=== PATIENT | female | born 1990 ===

== ENCOUNTER 2020-05-24 23:55 | Emergency (ER) | payer OTHER, BC ==
[2020-05-24] MEDS ORDERED: Acetaminophen/HYDROcodone 325-5 MG Tab PO ONE (23:56)
[2020-05-24] MEDS ORDERED: Amoxicillin/Clavulanate K 500-125 MG Tab PO ONE (23:56)
--- NOTE | 2020-05-25 00:05 | EDM.PDOC ---
ED HPI GENERAL MEDICAL PROBLEM - General Chief Complaint: Bite:Animal, Insect Stated Complaint: CAT BITE Time Seen by Provider: 05/25/20 00:02 Source of Information: Reports: Patient History Limitations: Reports: No Limitations - History of Present Illness INITIAL COMMENTS - FREE TEXT/NARRATIVE: Severe pain left wrist,fore arm. Swelling and some numbness. Cat bite yesterday. Not responding to OTC Motrin. No systemic fever or chills.. left forearm Pain Score (Numeric/FACES): 3 - Related Data Allergies Allergy/AdvReac Type Severity Reaction Status Date / Time seasonal allergies Allergy Hives Uncoded 05/25/20 00:55 Home Meds: Home Meds . [Unable to Verify Home Med List] 05/25/20 [History] ED ROS GENERAL - Review of Systems Review Of Systems: Comprehensive ROS is negative, except as noted in HPI. ED EXAM, ANIMAL BITE - Physical Exam Exam: See Below Text/Narrative:: Left wrist is red,warm,tender. Diminished range of mission.Normal peripheral pulses. Exam Limited By: No Limitations General Appearance: Alert, WD/WN Eye Exam: Bilateral Eye: EOMI, Normal Inspection, PERRL Nose: Normal Inspection Throat/Mouth: Normal Inspection Course - Vital Signs Last Recorded V/S: Last Vital Signs Temp 98.6 F 05/25/20 00:05 Pulse 76 05/25/20 00:05 Resp 17 05/25/20 00:05 BP 108/54 L 05/25/20 00:05 Pulse Ox 98 05/25/20 00:05 - Orders/Labs/Meds Labs: Laboratory Tests 05/25/20 05/25/20 05/25/20 Range/Units 00:10 00:10 00:10 WBC 8.3 (4.5-12.0) X10-3/uL RBC 4.25 (3.23-5.20) x10(6)uL Hgb 11.6 (11.5-15.5) g/dL Hct 35.7 (30.0-51.3) % MCV 84.0 (80-96) fL MCH 27.4 L (27.7-33.6) pg MCHC 32.6 (32.2-35.4) g/dL RDW 12.7 (11.5-15.5) % Plt Count 230 (125-369) X10(3)uL MPV 7.2 L (7.4-10.4) fL Neut % (Auto) 75.1 (46-82) % Lymph % (Auto) 19.0 (13-37) % [place] % (Auto) 5.8 (4-12) % Eos % (Auto) 0 L (1.0-5.0) % Baso % (Auto) 0 (0-2) % Neut # (Auto) 6.2 (1.6-8.3) # Lymph # (Auto) 1.6 (0.6-5.0) # [place] # (Auto) 0.5 (0.0-1.3) # Eos # (Auto) 0.0 (0.0-0.8) # Baso # (Auto) 0.0 (0.0-0.2) # Sodium 141 (135-145) mmol/L Potassium 3.8 (3.5-5.3) mmol/L Chloride 103 (100-110) mmol/L Carbon Dioxide 32 (21-32) mmol/L BUN 11 (7-18) mg/dL Creatinine 0.6 (0.55-1.02) mg/dL Est Cr Clr Drug Dosing TNP Estimated GFR (MDRD) > 60 (>60) BUN/Creatinine Ratio 18.3 (9-20) Glucose 93 (80-116) mg/dL Calcium 8.2 L (8.6-10.2) mg/dL C-Reactive Protein 8.8 H* (0.5-0.9) mg/dL Meds: Medications Discontinued Medications Generic Name Dose Route Start Last Admin Trade Name Coltonq PRN Reason Stop Dose Admin Hydrocodone Bitart/Acetaminophen 4 tab 05/24/20 23:56 Marcellus 325-5 Mg PO 05/24/20 23:57 .STK-MED ONE Amoxicillin/Clavulanate Potassium 20 tab 05/24/20 23:56 Augmentin 500 Mg\125 Mg PO 05/24/20 23:57 .STK-MED ONE Departure - Departure Time of Disposition: 00:04 Disposition: Home, Self-Care 01 Condition: Good Clinical Impression: Cat bite Cellulitis Qualifiers: Site of cellulitis: extremity - Discharge Information Instructions: Animal Bite, Adult, [id number] Referrals: Chivo Gil MD [Physician] - 05/26/20 Forms: ED Department Discharge Additional Instructions: Follow up with Dr. Gil on Friday05/26/20 call and make an appointment. Take the Augmentin 1 tablet 3 times a day until gone. Hydrocodone 1 tab every 4-6 hours as needed for severe pain. May call if you have any questions or come back to the ER if symptoms get acutely worse. - Problem List & Annotations (1) Cellulitis SNOMED Code(s): 988118789 Code(s): L03.90 - CELLULITIS, UNSPECIFIED Status: Acute Qualifiers: Site of cellulitis: extremity (2) Cat bite SNOMED Code(s): 849586745, 579475877 Code(s): W55.01XA - BITTEN BY CAT, INITIAL ENCOUNTER Status: Acute Qualifiers: Encounter type: subsequent encounter Qualified Code(s): W55.01XD - Bitten by cat, subsequent encounter - Problem List Review Problem List Initiated/Reviewed/Updated: Yes - Assessment/Plan Plan: Augmentin. Marcellus. Tid prn. Discussed infections form cats. Potential to need IV abx,especially if it spreads to deeper tissues or wrist joint. Follow up in 24- 48 with PCP.
== END 2020-05-25 00:23 | disposition home or self-care (01) ==
LOC: FB.ED 23:55
DX: S61.552A Open bite of left wrist, initial encounter (principal); S51.852A Open bite of left forearm, initial encounter; L03.114 Cellulitis of left upper limb; Z91.048 Other nonmedicinal substance allergy status; W55.01XA Bitten by cat, initial encounter
CPT/HCPCS: 36415; 80048; 85025; 86140; 99283; A9270-GY

== ENCOUNTER 2025-05-05 06:42 | Day surgery (SDC) | payer BC ==
[2025-05-05] MEDS ORDERED: Midazolam 1 MG/ML 2 ML SDV IV ONE (06:43)
[2025-05-05] MEDS ORDERED: Rocuronium 100 MG/10 ML MDV IV ONE (06:43)
[2025-05-05] MEDS ORDERED: Ondansetron 4 MG/2 ML SDV IVPUSH ONE (06:43)
[2025-05-05] MEDS ORDERED: Propofol 200 MG/20 ML SDV IV ONE (06:43)
[2025-05-05] MEDS ORDERED: diphenhydrAMINE 50 MG/ML SDV IVPUSH ONE (06:43)
[2025-05-05] MEDS ORDERED: Succinylcholine 200 MG/10 ML MDV IV ONE (06:43)
[2025-05-05] MEDS ORDERED: fentaNYL 100 MCG/2 ML SDV IV ONE (06:43)
[2025-05-05] MEDS ORDERED: Dexamethasone 4 MG/ML 5 ML MDV IVPUSH ONE (06:43)
[2025-05-05] MEDS ORDERED: Sodium Chloride 0.9% 10 ML Syringe FLUSH PRN (06:45)
[2025-05-05] MEDS: Lactated Ringers 1,000 ML IV SCH (07:48)
[2025-05-05] MEDS ORDERED: Acetaminophen/HYDROcodone 325-5 MG Tab PO PRN (10:24)
[2025-05-05] MEDS ORDERED: Lactated Ringers 1,000 ML IV ONE (14:48)
== END 2025-05-05 13:58 | disposition home or self-care (01) ==
LOC: FB.SDS 06:42
PROVIDERS: ATTEND Surgery
DX: K80.10 Calculus of gallbladder with chronic cholecystitis without obstruction (principal); K82.8 Other specified diseases of gallbladder; E66.9 Obesity, unspecified; Z68.37 Body mass index [BMI] 37.0-37.9, adult; Z91.09 Other allergy status, other than to drugs and biological substances; Z79.899 Other long term (current) drug therapy
CPT/HCPCS: 47562; 81025; 88304; J0330; J0665; J1100; J1200; J2003; J2250; J2405; J2704; J3010; J7120; 00790